=== PATIENT | female | born 1970 | race Native Hawaiian/Other Pacific Islander ===

== ENCOUNTER 2021-01-29 20:47 | Emergency (ER) | payer OTHER ==
[~2021-01-29] VITALS: Ht 175.3 cm; Wt 101.6 kg
[~2021-01-29 20:47] MED LIST: ADIPEX-P37.5 M1 OR; ALPR0.5T24 PO; CELEXA20 MG OR; CLARITIN10 M1 PO; LIPITOR10 MG PO; MOBIC7.5 M1 OR; NEXIUM40 M1 OR; TIZA4TAB5 PO; TRAM50TA PO
[2021-01-29 21:33] VITALS: BP 144/85; TEMP 98.9
== END 2021-01-29 21:33 | disposition home or self-care (01) ==
LOC: ED 20:47
DX: S05.01XA Injury of conjunctiva and corneal abrasion without foreign body, right eye, initial encounter (principal)
CPT/HCPCS: 99283